=== PATIENT | male | born 1985 | race Caucasian/White ===

== ENCOUNTER 2019-10-26 13:00 | Emergency (ER) | payer BC ==
--- NOTE | 2019-10-26 13:34 | RAD REPORT ---
EXAM DESCRIPTION: CT - Ct Stroke Brain Wo Cont - 10/26/2019 1:24 pm CLINICAL HISTORY: RIGHT SIDED WEAKNESS, slurred speech COMPARISON: No comparisons TECHNIQUE: Axial 5 millimeter thick images of the head were obtained without IV contrast. All CT scans are performed using dose optimization technique as appropriate and may include automated exposure control or mA/KV adjustment according to patient size. FINDINGS: No intracranial hemorrhage, mass, or cerebral edema. No acute cortical based infarction. N o cortical edema or sulcal effacement. Patient has focal decreased attenuation along the left head of the caudate and basal ganglia. This may be from prior ischemic injury. This is not seen as an acute finding. Winters matter-white matter differentiation is preserved.Ventricles are normal. Visualized portions of the mastoid air cells, paranasal sinuses, and orbits are unremarkable. Images were reviewed and findings telephoned to the referring physician 1320 hours. IMPRESSION: No hemorrhage or other acute intracranial finding identifiable. If there are continued concerns for acute CVA, follow-up MR imaging could be performed.
[2019-10-26 13:59] LABS: Absolute Lymphocytes (CBC) 2.4 K/uL (0.7-4.9); Basophils % 0.3 % (0-1.3); Hematocrit 43.3 % (39.6-49.0); Lymphocytes % 35.1 % (15.3-44.8); MPV 8.8 fL (7.6-11.3); RBC Red Blood Cell Count 5.14 M/uL (4.33-5.43)
[2019-10-26 14:03] LABS: Protime INR 1.47
--- NOTE | 2019-10-26 14:03 | RAD REPORT ---
EXAM DESCRIPTION: RAD - Chest Single View - 10/26/2019 1:58 pm CLINICAL HISTORY: Possible CVA Chest pain. COMPARISON: No comparisons FINDINGS: Portable technique limits examination quality. The lungs are grossly clear. The heart is upper limit of normal in size. No displaced fractures.Galvan otomy wires. IMPRESSION: No acute intrathoracic process suspected.
--- NOTE | 2019-10-26 14:34 | EDPHYS ---
Physician Documentation [facility] [place] Name: Wolfgang Turner Age: 34 yrs Sex: Male : 1985 Arrival Date: 10/26/2019 Time: 13:02 Bed 20 Private MD: ED Physician Art Moody HPI: 10/26 12:22 This 34 yrs old Male presents to ER via Ambulatory with complaints of S/S of kdr Possible Stroke, Sent By Dr Isbell. 12:22 The patient's problem is reported as paresthesias, in left upper extremity, Speech kdr difficulty. Onset: The symptoms/episode began/occurred suddenly, just prior to arrival. Duration: This was a single incident. 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 The symptoms are alleviated by nothing. The symptoms are aggravated by nothing. Associated signs and symptoms: Pertinent positives: tingling. Severity of symptoms: At their worst the symptoms were mild in the emergency department the symptoms have resolved. Patient's baseline: Neuro: alert and fully oriented, Motor: no deficits, Ambulation: walks without assistance, Speech: normal. The patient has not experienced similar symptoms in the past. The patient has not recently seen a physician. Historical: - Allergies: 10/25 13:09 Aspirin; ll1 - PSHx: 13:09 artificial heart valve; ll1 - Immunization history:: Flu vaccine is up to date. - Social history:: Smoking status: Reported history of juuling and/or vaping. Patient uses alcohol, only on a social basis. Patient/guardian denies using street drugs. ROS: 10/26 12:22 Constitutional: Negative for fever, chills, and weight loss, Eyes: Negative for injury, kdr pain, redness, and discharge, ENT: Negative for injury, pain, and discharge, Neck: Negative for injury, pain, and swelling, Cardiovascular: Negative for chest pain, palpitations, and edema, Respiratory: Negative for shortness of breath, cough, wheezing, and pleuritic chest pain, Abdomen/GI: Negative for abdominal pain, nausea, vomiting, diarrhea, and constipation, Back: Negative for injury and pain, : Negative for injury, bleeding, discharge, and swelling, MS/Extremity: Negative for injury and deformity, Skin: Negative for injury, rash, and discoloration, Psych: Negative for depression, anxiety, suicide ideation, homicidal ideation, and hallucinations, Allergy/Immunology: Negative for hives, rash, and allergies, Endocrine: Negative for neck swelling, polydipsia, polyuria, polyphagia, and marked weight changes, Hematologic/Lymphatic: Negative for swollen nodes, abnormal bleeding, and unusual bruising. Neuro: Positive for speech changes, tingling. Exam: 12:22 Radiologist reports: Negative kdr 12:22 Constitutional: This is a well developed, well nourished patient who is awake, alert, and in no acute distress. Head/Face: Normocephalic, atraumatic. Eyes: Pupils equal round and reactive to light, extra-ocular motions intact. Lids and lashes normal. Conjunctiva and sclera are non-icteric and not injected. Cornea within normal limits. Periorbital areas with no swelling, redness, or edema. Neck: Trachea midline, no thyromegaly or masses palpated, and no cervical lymphadenopathy. Supple, full range of motion without nuchal rigidity, or vertebral point tenderness. No Meningismus. Chest/axilla: Normal chest wall appearance and motion. Nontender with no deformity. No lesions are appreciated. Cardiovascular: Regular rate and rhythm with a normal S1 and S2. No gallops, murmurs, or rubs. Normal PMI, no JVD. No pulse deficits. Respiratory: Lungs have equal breath sounds bilaterally, clear to auscultation and percussion. No rales, rhonchi or wheezes noted. No increased work of breathing, no retractions or nasal flaring. Abdomen/GI: Soft, non-tender, with normal bowel sounds. No distension or tympany. No guarding or rebound. No evidence of tenderness throughout. Back: No spinal tenderness. No costovertebral tenderness. Full range of motion. Skin: Warm, dry with normal turgor. Normal color with no rashes, no lesions, and no evidence of cellulitis. MS/ Extremity: Pulses equal, no cyanosis. Neurovascular intact. Full, normal range of motion. Neuro: Awake and alert, GCS 15, oriented to person, place, time, and situation. Cranial nerves II-XII grossly intact. Motor strength 5/5 in all extremities. Sensory grossly intact. Cerebellar exam normal. Normal gait. Psych: Awake, alert, with orientation to person, place and time. Behavior, mood, and affect are within normal limits. Vital Signs: 10/25 13:06 BP 141 / 107; Pulse 80; Resp 18; Temp 98.4; Pulse Ox 99% ; Weight 104.33 kg; Height 6 ll1 ft. (182.88 cm); Pain 2/10; 14:25 BP 132 / 93; Pulse 79; Resp 18; Pulse Ox 99% on R/A; em 13:06 Body Mass Index 31.19 (104.33 kg, 182.88 cm) ll1 NIH Stroke Scale Scores: 13:35 NIHSS Score: 0 em 10/26 12:22 NIHSS Score: 0 kdr MDM: 10/25 14:33 Patient medically screened. kdr 14:33 ED course: D/w patient the need for MRI but he refuses stating that he didn't want to kdr incur the cost and that he would follow-up with Dr. Isbell. I informed him that since he had an artifical hear valve, he was more suspectable to possible complications including stroke like symptoms. I placed a call to Dr. Isbell but he did not answer. The patient was at his baseline and without any apparent residual effect from the earlier event. Despite my best efforts, the patient continued to refuse to get an MRI at this time. He was discharged in goof condition . 10/26 12:22 Data reviewed: vital signs, nurses notes, lab test result(s), EKG, radiologic studies. kdr Counseling: I had a detailed discussion with the patient and/or guardian regarding: the historical points, exam findings, and any diagnostic results supporting the discharge/admit diagnosis, lab results, radiology results, the need for outpatient follow up. ED course: D/w Dr. Isbell after patient had left. He will see in f/u. The patient refused further w/u and stated that he would see his doctors in [place] for further w/u. 10/25 13:25 Order name: Basic Metabolic Panel kdr 10/25 13:25 Order name: CBC with Diff; Complete Time: 14:26 kdr 10/25 13:20 Order name: Ct Stroke Brain Wo Cont; Complete Time: 13:55 EDMS 10/25 13:25 Order name: Protime (+inr); Complete Time: 14:26 kdr 10/25 13:25 Order name: Ptt, Activated; Complete Time: 14:26 kdr 10/25 13:50 Order name: Glucose, Ancillary Testing; Complete Time: 13:55 EDMS 10/25 13:25 Order name: Stroke CXR 1 View; Complete Time: 14:26 kdr 10/25 13:25 Order name: EKG; Complete Time: 13:25 kdr 10/25 13:25 Order name: Accucheck; Complete Time: 13:41 kdr 10/25 13:25 Order name: Cardiac monitoring; Complete Time: 13:42 kdr 10/25 13:25 Order name: EKG - Nurse/Tech; Complete Time: 13:41 kdr 10/25 13:25 Order name: IV Saline Lock; Complete Time: 13:41 kdr 10/25 13:25 Order name: Labs collected and sent; Complete Time: 13:41 kdr 10/25 13:25 Order name: NPO; Complete Time: 13:42 kdr 10/25 13:25 Order name: O2 Per Protocol; Complete Time: 13:41 kdr 10/25 13:25 Order name: O2 Sat Monitoring; Complete Time: 13:41 kdr 10/25 13:25 Order name: Stroke Swallow Screen; Complete Time: 14:49 kdr Administered Medications: No medications were administered Disposition: 10/26/19 14:33 Discharged to Home. Impression: Expressive language disorder - Resolved. - Condition is Stable. - Discharge Instructions: Aphasia. - Medication Reconciliation Form, Thank You Letter form. - Follow up: Private Physician; When: 2 - 3 days; Reason: If symptoms return, Further diagnostic work-up, Recheck today's complaints, Continuance of care, Re-evaluation by your physician. - Problem is new. - Symptoms are resolved. NIH Stroke Scale - NIH Stroke Score Date: 10/26/2019 Time: 13:35 Total Score = 0 1a. Level of Consciousness (LOC) - 0(Alert) 1b. Level of Consciousness (LOC) (Year \T\ Age) - 0(Both) 1c. LOC Commands (Open \T\ Closes Eyes/Folder Gluer Operator) - 0(Both) 2. Best Gaze (Lateral Gaze Paresis) - 0(Normal) 3. Visual Field Loss - 0(No visual loss) 4. Facial Palsy - 0(Normal) 5a. Left Arm: Motor (10-second hold) - 0(No drift) 5b. Right Arm: Motor (10-second hold) - 0(No drift) 6a. Left Leg: Motor (5-second hold - always test supine) - 0(No drift) 6b. Right Leg: Motor (5-second hold - always test supine) - 0(No drift) 7. Limb Ataxia (finger/nose \T\ heel/valdivia - test with eyes open) - 0(Absent) 8. Sensory Loss (pinprick arms/legs/face) - 0(Normal) 9. Best Language: Aphasia (description/naming/reading) - 0(No aphasia) 10. Dysarthria (speech clarity - read or repeat words) - 0(Normal) 11. Extinction and Inattention (visual/tactile/auditory/spatial/personal) - 0(No abnormality) Initials: NIH Stroke Scale - NIH Stroke Score Date: 10/27/2019 Time: 12:22 Total Score = 0 1a. Level of Consciousness (LOC) - 0(Alert) 1b. Level of Consciousness (LOC) (Year \T\ Age) - 0(Both) 1c. LOC Commands (Open \T\ Closes Eyes/Folder Gluer Operator) - 0(Both) 2. Best Gaze (Lateral Gaze Paresis) - 0(Normal) 3. Visual Field Loss - 0(No visual loss) 4. Facial Palsy - 0(Normal) 5a. Left Arm: Motor (10-second hold) - 0(No drift) 5b. Right Arm: Motor (10-second hold) - 0(No drift) 6a. Left Leg: Motor (5-second hold - always test supine) - 0(No drift) 6b. Right Leg: Motor (5-second hold - always test supine) - 0(No drift) 7. Limb Ataxia (finger/nose \T\ heel/valdivia - test with eyes open) - 0(Absent) 8. Sensory Loss (pinprick arms/legs/face) - 0(Normal) 9. Best Language: Aphasia (description/naming/reading) - 0(No aphasia) 10. Dysarthria (speech clarity - read or repeat words) - 0(Normal) 11. Extinction and Inattention (visual/tactile/auditory/spatial/personal) - 0(No abnormality) Initials: kdr Signatures: Dispatcher [employer] EDMS Art Moody MD MD kdr Ricardo Mendez, RN RN em Claribel Roa RN RN ll1 Corrections: (The following items were deleted from the chart) 10/25 13:37 13:25 CT-STROKE BRAIN W/O CONTRAST+CT.RAD.BRZ ordered. [facility] 14:55 14:33 10/26/2019 14:33 Discharged to Home. Impression: Expressive language em disorder - Resolved. Condition is Stable. Forms are Medication Reconciliation Form, Thank You Letter, Antibiotic Education, Prescription Opioid Use. Follow up: Private Physician; When: 2 - 3 days; Reason: If symptoms return, Further diagnostic work-up, Recheck today's complaints, Continuance of care, Re-evaluation by your physician. Problem is new. Symptoms are resolved. kdr
--- NOTE | 2019-10-26 14:34 | ER ---
Nurse's Notes [facility] [place] Name: Wolfgang Turner Age: 34 yrs Sex: Male : 1985 Arrival Date: 10/26/2019 Time: 13:02 Bed 20 Private MD: Diagnosis: Expressive language disorder-Resolved Presentation: 10/25 13:06 Chief complaint: Patient states: Unable to concentrate, aphasia, tingling in right arm ll1 started while on a zoom call for work after 11pm. Feeling better now, sent in Dr. Campo. Coronavirus screen: Client denies travel out of the [place] in the last 14 days. At this time, the client does not indicate any symptoms associated with coronavirus-19. Ebola Screen: Patient denies travel to an Ebola-affected area in the 21 days before illness onset. No acute neurological deficit is noted. Initial Sepsis Screen: Does the patient meet any 2 criteria? No. Patient's initial sepsis screen is negative. Risk Assessment: Do you want to hurt yourself or someone else? Patient reports no desire to harm self or others. Onset of symptoms was October 26, 2019. 13:06 Method Of Arrival: Ambulatory ll1 13:06 Acuity: KHRIS 2 ll1 Historical: - Allergies: 13:09 Aspirin; ll1 - PSHx: 13:09 artificial heart valve; ll1 - Immunization history:: Flu vaccine is up to date. - Social history:: Smoking status: Reported history of juuling and/or vaping. Patient uses alcohol, only on a social basis. Patient/guardian denies using street drugs. Screenin:35 Abuse screen: Denies threats or abuse. Nutritional screening: No deficits noted. em Tuberculosis screening: No symptoms or risk factors identified. Fall Risk None identified. Assessment: 13:35 T-PA (Activase) Screening: Contraindications: Rapidly improving condition or minor em deficit: Yes. 13:35 VAN Scoring: Arm Drift: Patients demonstrates NO arm weakness. Patient is VAN Negative. em Patient has been NPO before screening. The patient is alert, and able to follow commands. The patient does not exhibit slurred or garbled speech. The patient is not exhibiting difficulty speaking. The patient does not exhibit difficulty understanding words. The patient is able to swallow own secretions with no drooling or need for suction. Patient tolerated one teaspoon of water. No drooling, immediate coughing, gurgling, or clearing of the throat was noted. The patient tolerated 90mL of water. No drooling, immediate coughing, gurgling, or clearing of the throat was noted. The patient passed the bedside swallow screening. Oral medications may be given as ordered. Contact Physician for further diet orders. Provider notified of bedside swallow screening results: Art Moody MD. 13:35 General: Appears in no apparent distress. 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 Pain: Denies pain. Neuro: Level of Consciousness is awake, alert, obeys commands, Oriented to person, place, time, situation, Appropriate for age. Cardiovascular: Capillary refill < 3 seconds Patient's skin is warm and dry. Respiratory: Airway is patent Respiratory effort is even, unlabored, Respiratory pattern is regular, symmetrical. GI: Abdomen is flat, Patient currently denies nausea, vomiting. EENT: Denies difficulty swallowing. Derm: Skin is intact, is healthy with good turgor, Skin is pink, warm \T\ dry. Musculoskeletal: Capillary refill < 3 seconds, Range of motion: intact in all extremities. 14:25 Reassessment: pt states he does not want to have MRI done here, will have it done in [facility] because told him to, pt states he is ready to go back to work. Vital Signs: 13:06 BP 141 / 107; Pulse 80; Resp 18; Temp 98.4; Pulse Ox 99% ; Weight 104.33 kg; Height 6 ll1 ft. (182.88 cm); Pain 2/10; 14:25 BP 132 / 93; Pulse 79; Resp 18; Pulse Ox 99% on R/A; em 13:06 Body Mass Index 31.19 (104.33 kg, 182.88 cm) ll1 NIH Stroke Scale Scores: 13:35 NIHSS Score: 0 em 10/26 12:22 NIHSS Score: 0 kdr ED Course: 10/25 13:02 Patient arrived in ED. ds1 13:08 Triage completed. ll1 13:09 Arm band placed on Patient placed in an exam room, on a stretcher. ll1 13:14 Rittger, Atr, MD is Attending Physician. kdr 13:24 Ct Stroke Brain Wo Cont In Process Unspecified. EDMS 13:25 Ricardo Mendez, RN is Primary Nurse. em 13:35 Patient has correct armband on for positive identification. Bed in low position. Call em light in reach. Side rails up X2. Pulse ox on. NIBP on. 13:41 Inserted saline lock: 20 gauge in right forearm, using aseptic technique. Blood mt collected. 13:41 BGL: 131. mt 13:48 EKG done, by rv technician. reviewed by Art Moody MD. at1 13:58 Stroke CXR 1 View In Process Unspecified. EDMS 14:54 IV discontinued, intact, bleeding controlled, No redness/swelling at site. Pressure em dressing applied. Administered Medications: No medications were administered Outcome: 14:33 Discharge ordered by MD. kdr 14:53 Discharged to home ambulatory. em 14:53 Condition: improved 14:53 Discharge instructions given to patient, Instructed on discharge instructions, follow up and referral plans. Demonstrated understanding of instructions, follow-up care. 14:55 Patient left the ED. em NIH Stroke Scale - NIH Stroke Score Date: 10/26/2019 Time: 13:35 Total Score = 0 1a. Level of Consciousness (LOC) - 0(Alert) 1b. Level of Consciousness (LOC) (Year \T\ Age) - 0(Both) 1c. LOC Commands (Open \T\ Closes Eyes/Engine Repairer Production) - 0(Both) 2. Best Gaze (Lateral Gaze Paresis) - 0(Normal) 3. Visual Field Loss - 0(No visual loss) 4. Facial Palsy - 0(Normal) 5a. Left Arm: Motor (10-second hold) - 0(No drift) 5b. Right Arm: Motor (10-second hold) - 0(No drift) 6a. Left Leg: Motor (5-second hold - always test supine) - 0(No drift) 6b. Right Leg: Motor (5-second hold - always test supine) - 0(No drift) 7. Limb Ataxia (finger/nose \T\ heel/valdivia - test with eyes open) - 0(Absent) 8. Sensory Loss (pinprick arms/legs/face) - 0(Normal) 9. Best Language: Aphasia (description/naming/reading) - 0(No aphasia) 10. Dysarthria (speech clarity - read or repeat words) - 0(Normal) 11. Extinction and Inattention (visual/tactile/auditory/spatial/personal) - 0(No abnormality) Initials: NIH Stroke Scale - NIH Stroke Score Date: 10/27/2019 Time: 12:22 Total Score = 0 1a. Level of Consciousness (LOC) - 0(Alert) 1b. Level of Consciousness (LOC) (Year \T\ Age) - 0(Both) 1c. LOC Commands (Open \T\ Closes Eyes/Engine Repairer Production) - 0(Both) 2. Best Gaze (Lateral Gaze Paresis) - 0(Normal) 3. Visual Field Loss - 0(No visual loss) 4. Facial Palsy - 0(Normal) 5a. Left Arm: Motor (10-second hold) - 0(No drift) 5b. Right Arm: Motor (10-second hold) - 0(No drift) 6a. Left Leg: Motor (5-second hold - always test supine) - 0(No drift) 6b. Right Leg: Motor (5-second hold - always test supine) - 0(No drift) 7. Limb Ataxia (finger/nose \T\ heel/valdivia - test with eyes open) - 0(Absent) 8. Sensory Loss (pinprick arms/legs/face) - 0(Normal) 9. Best Language: Aphasia (description/naming/reading) - 0(No aphasia) 10. Dysarthria (speech clarity - read or repeat words) - 0(Normal) 11. Extinction and Inattention (visual/tactile/auditory/spatial/personal) - 0(No abnormality) Initials: kdr Signatures: Dispatcher [employer] Art Simeon MD MD kdr Munoz, Edgar, RAULITO RN Jessica Monsivais ds1 Minnie Asif, dietary services manager EKG Tat1 Teena Key mt, Lynsay, RN RN ll1 Corrections: (The following items were deleted from the chart) 13:09 13:06 Acuity: KHRIS 3 ll1 ll1
[2019-10-26 14:44] LABS: BUN Blood Urea Nitrogen 11 mg/dL (7-18); Bicarbonate 28 mmol/L (21-32); Glucose Level 108 mg/dL (74-106); Potassium 3.9 mmol/L (3.5-5.1); Sodium Level 140 mmol/L (136-145)
[2019-10-26 15:21] VITALS: TEMP 98.4; O2SAT 99
[2019-10-26 15:22] VITALS: BP 132/93
--- NOTE | 2019-10-27 08:41 | EKG ---
Test Date: 2019-10-26 Test Time: 13:44:06 Fisher Terrapin: MABEL MEASUREMENT RESULTS: Intervals: Rate: 76 [place]: 190 QRSD: 128 QT: 384 QTc: 432 Walker: P: 29 [place]: 190 QRS: -38 T: 67 INTERPRETIVE STATEMENTS: Normal sinus rhythm Left axis deviation Left ventricular hypertrophy with QRS widening Abnormal ECG No previous ECG available for comparison Electronically Signed On 10-27-19 08:38:24 CDT by Rodrigo Isbell
== END 2019-10-26 14:55 | disposition home or self-care (01) ==
LOC: ER 13:00
DX: F80.1 Expressive language disorder (principal); Z95.2 Presence of prosthetic heart valve; Z88.6 Allergy status to analgesic agent
CPT/HCPCS: 36415; 70450; 71045; 80048; 82947; 85025; 85610; 85730; 93005; 99284